=== PATIENT | female | born 1995 | race Hispanic/Latino ===

== ENCOUNTER 2019-02-11 18:12 | Day surgery (SDC) | payer OTHER ==
[2019-02-11 18:40] VITALS: BP 124/71; TEMP 98.9; BMI 24.7
--- NOTE | 2019-02-11 19:07 | PDOC.LDHP ---
Labor and Delivery H&P Chief complaint: abdominal pain HPI: 23 y/o G1 at 22w1d, patient of Dr. Wise, presents with lower abdominal pain since 11:31 this morning. Denies VB, LOF, decreased FM, UA sx or other concerns. Has problems with constipation but has had a BM today. Endorses back ache but no significant back pain. No radiation of pain. Took 1 Tylenol with minimal relief. ROS neg for HEENT, cv, pulm, gi, gu, neuro, psych, skin, musculoskeletal or constitutional symptoms other than mentioned above. OB History Details: First Current complications: none Past Medical History: None Current medications: pre-tima vitamins Previous surgical history: none Allergies/Adverse Reactions: Allergies Allergy/AdvReac Type Severity Reaction Status Date / Time No Known Allergies Allergy Unverified 02/11/19 18:34 Social history: none - Physical Exam Vital signs reviewed and normal: yes General: NAD, resting Lungs: nonlabored breathing Abdomen: gravid Extremeties: no edema - Vaginal Exam cm dilated: 0 (firm, posterior) Effacement: 0% Station: -3 - Assessment 23 y/o G1 at 22w1d with musculoskeletal discomforts of . UA with +RBCs but no e/o infection. status reassuring with normal FHTs in 150s. - Plan -: D/c home with precautions. Discussed possibility that pain could be from kidney stone but clinical picture is not really consistent at this time. Comfort measures discussed. Advised to keep all appointments.
[2019-02-11 19:20] LABS: Bilirubin Negative (Negative); Blood, Urine Large (Negative); Clarity CLEAR (Clear); Glucose, Urine (Dipstick) Negative (Negative); Leukocyte Negative (Negative); Nitrite Negative (Negative); Protein, Urine (Dipstick) Negative (Neg-Trace); Specific Gravity, Urine 1.012 (1.002-1.036); Urobilinogen 0.2 mg/dL (0.2-1.0)
[2019-02-11 19:23] LABS: Bacteria/HPF None Seen HPF (None Seen); Hyaline Casts/LPF 0-3 HYALINE CAST LPF (0-3 Hyaline); Pathc Cast-AUWi Flag 0.95 (0-2.49); RBC/HPF GREATER THAN 50-TNTC HPF (0-3); Squamous Epithelial 0-3 HPF (0-3); WBC/HPF 0-3 HPF (0-3)
[2019-02-11 19:24] LABS: Urine Culture Reflex No No
== END 2019-02-11 19:35 | disposition home or self-care (01) ==
LOC: L&D/OP 18:12
PROVIDERS: ATTEND Obstetrics & Gynecology
DX: O26.892 Other specified pregnancy related conditions, second trimester (principal); R10.30 Lower abdominal pain, unspecified; Z3A.22 22 weeks gestation of pregnancy
CPT/HCPCS: 81001; 99282

== ENCOUNTER 2019-06-03 03:25 | Day surgery (SDC) | payer OTHER ==
[2019-06-03 04:14] VITALS: BP 118/72; TEMP 97.6; BMI 30.4
[2019-06-03 04:22] LABS: Amnisure Test No Membranes Rupture (No Rupture)
[2019-06-03 04:24] LABS: Amnisure Internal Control QC ACCEPTABLE (ACCEPTABLE)
--- NOTE | 2019-06-03 04:44 | PDOC.FPROB ---
FMR OB H&P: HPI - History of Present Illness Chief Complaint: contractions, back pain History of Present Illness: 23 yo @ 38.1 presents for painful contractions every 10-15 minutes and low back pain that has been present for weeks. Denies LOF, vaginal bleeding. Reports pos movement. FMR OB H&P: Current - Care : 1 Para: 0 Gestational age: 38.1 - OB Labs Blood type: unknown RH: unknown Antibody Screen: unknown HIV: unknown RPR: unknown HepBsAg: unknown Quad screen: unknown Gonorrhea: unknown Chlamydia: unknown FMR OB H&P: History - Past Medical History PMH: None - OB History OB History: None - INSTRUMENT MECHANIC History INSTRUMENT MECHANIC History: None - Surgical History Sx History: None - Social History Social History: Dneies alcohol tobacco and drug use FMR OB H&P: Medications - Current Home Medications: Medication Instructions Recorded Confirmed Type 21/Iron Fu/Folic Acid 1 tablet PO DAILY 06/03/19 06/03/19 History [ Complete Caplet] Allergies/Adverse Reactions: Allergies Allergy/AdvReac Type Severity Reaction Status Date / Time No Known Allergies Allergy Verified 06/03/19 04:09 FMR OB H&P: ROS - Review of Systems General: denies: fever/chills, fatigue Eyes: denies: vision changes ENT: denies: nasal congestion Cardiovascular: denies: chest pain, edema Gastrointestinal: denies: abdominal pain, cramping, nausea, vomiting, constipation Genitourinary (Female): reports: vaginal pressure Neurologic: denies: numbness, syncope Integumentary: denies: itching, rash FMR OB H&P: Vital Signs - Maternal Vital signs: Vital Signs - First Documented Temp Pulse Resp BP 97.6 F 85 18 118/72 06/03/19 04:00 06/03/19 04:00 06/03/19 04:00 06/03/19 04:00 - Heart Tones Baseline: 130 Variability: moderate Acceleration: present Deceleration: absent Category: category 1 [place] contractions every: 5min FMR OB H&P: Physical Exam - Physical Exam General: NAD, awake, alert and oriented HEENT: normocephalic and atraumatic, PERRLA, EOMI, MMM, conjunctiva clear, grossly normal vision, grossly normal hearing Neck: trachea midline Heart: RRR, normal S1/S2, no murmurs/rubs/gallops, pulses present, no edema General: CTAB, no respiratory distress, good air movement, no rales/rhonchi, no wheezing, no retractions Abdomen: soft, gravid Neurological: no focal deficit Psychiatric: normal mood and affect - Pelvic Exam SVE: /-2 Membranes: Intact FMR OB H&P: Results - Labs Lab results: Laboratory Results - last 24 hr 06/03/19 04:06 Amnio Swab Test No Membranes Rupture FMR OB H&P: A/P - Problem List (1) Term Status: Acute Code(s): Z34.90 - ENCNTR FOR SUPRVSN OF NORMAL , UNSP, UNSP TRIMESTER Disposition: 23 yo G1 presents for painful contractions and chronic low back pain 1) Latent labor - sporadic contractions without cervical change - observed for 2 hours and no cervical change noted. - Plan to discharge to home with return labor precautions - will rx tylenol 1gm and benadryl 25 mg for pain Discussion: Date/Time: 06/03/19 0142 This H&P was discussed with [] and [] who agree with the above documentation and plan. Addendum - Attending - Attending Attestation Date/Time: 06/03/19 [id number] I personally evaluated the patient and discussed the management with Dr. Stanford. I agree with the History, Examination, Assessment and Plan documented above.
[2019-06-03] MEDS ORDERED: diphenhydrAMINE 25 MG CAP PO SCH (05:00)
[2019-06-03] MEDS ORDERED: Acetaminophen 500 MG TAB PO SCH (05:00)
== END 2019-06-03 05:04 | disposition home or self-care (01) ==
LOC: L&D/OP 03:25
PROVIDERS: ATTEND Obstetrics & Gynecology
DX: O99.89 Other specified diseases and conditions complicating pregnancy, childbirth and the puerperium (principal); M54.5 Low back pain; Z3A.38 38 weeks gestation of pregnancy
CPT/HCPCS: 84112; Q0163

== ENCOUNTER 2019-06-05 04:01 | Inpatient (IN) | payer OTHER ==
[2019-06-05 04:41] VITALS: BMI 30.4
[2019-06-05 05:05] LABS: Amnisure Test RUPTURE DETECTED (No Rupture)
[2019-06-05 05:07] LABS: Amnisure Internal Control QC ACCEPTABLE (ACCEPTABLE)
[2019-06-05] MEDS ORDERED: Promethazine HCl 25 MG/ML VIAL IM PRN ×3 (05:16→18:26)
[2019-06-05] MEDS ORDERED: Lactated Ringer's 1,000 ML IV SCH (05:16)
[2019-06-05] MEDS ORDERED: Acetaminophen 500 MG TAB PO PRN (05:16)
[2019-06-05] MEDS ORDERED: hydrALAZINE 20 MG/ML VIAL SLOW IVP PRN ×2 (05:16→18:26)
[2019-06-05] MEDS ORDERED: Ondansetron PF 4 MG/2 ML Vial IVP PRN ×3 (05:16→18:26)
[2019-06-05] MEDS: Butorphanol Tartrate 1 MG/ML VIAL SLOW IVP PRN ×2 (05:45→07:21)
[2019-06-05 06:05] LABS: Hemoglobin 10.9 g/dL (12.0-16.0); Mean Corpuscular HGB CONC 34.3 g/dL (32.0-36.0); Mean Corpuscular Hemoglobin 29.3 pg (27.0-31.0); Mean Corpuscular Volume 85.4 fL (78.0-98.0); Mean Platelet Volume 7.5 fL (7.4-10.4); Platelet Count 301 thou/uL (130-400); RBC Distribution Width 13.3 % (11.5-14.5); Red Blood Cell (RBC) Count 3.74 mill/uL (4.20-5.40); White Blood Cell (WBC) Count 11.2 thou/uL (4.8-10.8)
[2019-06-05 06:38] LABS: Hep B Surf Ag Non-Reactive S/CO (NonReactive); Syphilis Antibody Nonreactive (Nonreactive); Syphilis Antibody Index 0.04 S/CO (<1.00 Non-Reactive)
[2019-06-05] MEDS ORDERED: Fentanyl 4 mcg/Bup 0.1% Cadd 100 ML ONE (07:26)
[2019-06-05] MEDS ORDERED: Lidocaine 1.5%/Epinephrine 1:200,000 5 ML AMPUL IJ ONE (07:27)
[2019-06-05] MEDS ORDERED: Bupivacaine/Epinephrine 0.25% 30 ML VIAL ONE (09:00)
[2019-06-05] MEDS ORDERED: Lidocaine 2% MPF 10 ML AMP (For Epidural Use) ONE (09:00)
[2019-06-05] MEDS ORDERED: NS w/ Oxytocin 10 units 500 ML ONE (10:41)
[2019-06-05] MEDS ORDERED: Acetaminophen 325 MG TAB PO PRN (12:00)
[2019-06-05] MEDS ORDERED: Communication Order-Pharmacy FS SCH (12:00)
[2019-06-05] MEDS ORDERED: Lactated Ringer's 500 ML IV PRN (12:00)
[2019-06-05] MEDS ORDERED: ePHEDrine/0.9% NaCl/PF SYRINGE 50 mg/10 ml SLOW IVP PRN (12:00)
[2019-06-05] MEDS ORDERED: diphenhydrAMINE 50 MG/ML VIAL IVP PRN (12:00)
[2019-06-05] MEDS ORDERED: Fentanyl 4 mcg/Bupivacaine 0.1% Cassette 100 ML EPIDURAL SCH (12:00)
[2019-06-05] MEDS ORDERED: Naloxone HCl 0.4 mg/ml Vial IVP PRN ×2 (12:00)
[2019-06-05] MEDS: NS / Oxytocin 40 units/1000ml 1,000 ML ONE ×2 (15:20→16:11)
[2019-06-05] MEDS ORDERED: NS / Oxytocin 40 units/1000ml 1,000 ML ONE (16:00)
[2019-06-05] MEDS: Lactated Ringer's 1,000 ML IV SCH ×2 (18:08→18:09)
[2019-06-05] MEDS ORDERED: Misoprostol 200 MCG TAB VAG PRN (18:26)
[2019-06-05] MEDS ORDERED: Methylergonovine 0.2 MG/ML VIAL IM PRN (18:26)
[2019-06-05] MEDS ORDERED: HYDROcodone/Acetaminophen 5/325 mg Tablet PO PRN ×2 (18:26)
[2019-06-05] MEDS ORDERED: Zolpidem Tartrate 5 MG TAB PO PRN (18:26)
[2019-06-05] MEDS ORDERED: Milk Of Magnesia 30 ML UDCUP PO PRN (18:26)
[2019-06-05] MEDS ORDERED: Measles/Mumps/Rubella 10 MCG/0.5 ML VIAL SC ONE (18:26)
[2019-06-05] MEDS ORDERED: Bisacodyl 10 MG SUPP PR PRN (18:26)
[2019-06-05] MEDS ORDERED: Lanolin Ointment 7 GM TUBE TOP PRN (18:26)
[2019-06-05] MEDS ORDERED: Preparation H Ointment 28 GM TUBE PR PRN (18:26)
[2019-06-05] MEDS ORDERED: diphenhydrAMINE 25 MG CAP PO PRN (18:26)
[2019-06-05] MEDS ORDERED: Varicella virus, LIVE 0.5 ML VIAL SC ONE (18:26)
[2019-06-05] MEDS ORDERED: Adacel (T-DAP) 0.5 ML SYRINGE IM ONE (18:26)
--- NOTE | 2019-06-05 18:26 | PDOC.LDHP ---
Labor and Delivery H&P Chief complaint: contractions, loss of fluid HPI: 23 y/o presents with early labor/SROM at 38 and 3/7 weeks today. Current gestational age (weeks): 38 Due date: 06/16/19 Grav: 1 Para: 0 Current complications: none Abnormal US findings: No Current medications: pre-tima vitamins Previous surgical history: none Allergies/Adverse Reactions: Allergies Allergy/AdvReac Type Severity Reaction Status Date / Time No Known Allergies Allergy Verified 06/05/19 04:38 Social history: none - Physical Exam Vital signs reviewed and normal: yes General: NAD, resting Heart: RRR Lungs: CTAB Abdomen: gravid Extremeties: no edema FHT: category 1 - Assessment L&D Assessment: term rupture in membranes - Plan Plan: admit to L&D, labor augmentation if indicated
[2019-06-05] MEDS ORDERED: NS / Oxytocin 40 units/1000ml 1,000 ML IV SCH (18:30)
[2019-06-05] MEDS ORDERED: Benzocaine-Menthol 82.5 ML CAN TOP PRN (20:27)
[2019-06-05] MEDS: Docusate Calcium (SURFAK) 240 MG CAP PO SCH (20:56)
[2019-06-05] MEDS: Ibuprofen 800 MG TAB PO SCH (20:56)
[2019-06-06] MEDS: Ibuprofen 800 MG TAB PO SCH ×3 (04:54→21:42)
[2019-06-06 06:17] LABS: Hemoglobin 10.2 g/dL (12.0-16.0); Mean Corpuscular HGB CONC 32.9 g/dL (32.0-36.0); Mean Corpuscular Volume 88.2 fL (78.0-98.0); Mean Platelet Volume 6.9 fL (7.4-10.4); Platelet Count 266 thou/uL (130-400); RBC Distribution Width 13.3 % (11.5-14.5); Red Blood Cell (RBC) Count 3.53 mill/uL (4.20-5.40); White Blood Cell (WBC) Count 11.5 thou/uL (4.8-10.8)
[2019-06-06] MEDS: Ferrous Sulfate 325 MG TAB PO SCH ×2 (08:19→16:32)
[2019-06-06] MEDS: Docusate Calcium (SURFAK) 240 MG CAP PO SCH ×2 (09:28→21:42)
[2019-06-06] MEDS: Prenatal Vitamin 1 TAB PO SCH (09:28)
--- NOTE | 2019-06-06 18:47 | PDOC.PP ---
Post Progress Note Post Day #: 1 PO intake tolerated: yes Flatus: yes Ambulation: yes Vital Signs (12 hours) Temp Pulse Resp BP Pulse Ox 06/06/19 16:27 98.9 F 93 12 98/55 L 95 06/06/19 12:35 98.7 F 89 15 119/56 L 94 L 06/06/19 08:23 98.1 F 79 13 105/66 96 Weight Weight 172 lb - Physical Examination General: NAD Cardiovascular: no m/r/g, RRR Respiratory: clear to auscultation bilaterally, non-labored breathing Abdominal: + bowel sounds, lochia, no distention, appropriately TTP Extremities: negative homans (B) Neurological: no gross focal deficits Psychiatric: A&Ox3, normal affect Result Diagrams: 06/06/19 06:06 Additional Labs: Post Labs Blood Type O POSITIVE 06/05/19 06:30 Hep Bs Antigen Non-Reactive S/CO (NonReactive) 06/05/19 05:49
[2019-06-06 23:55] VITALS: TEMP 98.4
[2019-06-07] MEDS: Ibuprofen 800 MG TAB PO SCH (05:30)
[2019-06-07 08:04] VITALS: BP 111/66
[2019-06-07] MEDS: Ferrous Sulfate 325 MG TAB PO SCH (08:33)
[2019-06-07] MEDS: Docusate Calcium (SURFAK) 240 MG CAP PO SCH (09:15)
[2019-06-07] MEDS: Prenatal Vitamin 1 TAB PO SCH (09:15)
== END 2019-06-07 11:45 | disposition home or self-care (01) | DRG 807 ==
LOC: L&D/OP 04:01 → L&D-LIB 05:11 → 3SW 17:36
PROVIDERS: ADMIT Obstetrics & Gynecology; ATTEND Obstetrics & Gynecology
PROC: 10E0XZZ Delivery of Products of Conception, External Approach (ICD-10-PCS; principal; 2019-06-06)
DX: O80 Encounter for full-term uncomplicated delivery (principal); Z37.0 Single live birth; Z3A.38 38 weeks gestation of pregnancy
CPT/HCPCS: 36415; 51702; 84112; 85027; 86780; 86850; 86900; 86901; 87340; 99284; 99285; J0595; J2001; J2590; J3490; Q0163